=== PATIENT | male | born 1945 | race Caucasian/White ===

== ENCOUNTER → 2019-09-10 08:20 | Outpatient (CLI) | payer MEDICARE, BC ==
--- NOTE | ~2019-09-10 | ST ---
PATIENT:FILIPE HIDALGO MEDICAL RECORD: [id number] SEX: M LOCATION:[facility] ORDER #: ADMISSION DATE: 09/10/19 AGE OF PATIENT: 74 REFERRING PHYSICIAN: INTERPRETING PHYSICIAN: TRICE BOND MD DATE OF SERVICE: 09/10/2019 PROCEDURE: Nuclear stress test. INDICATION: Angina, hypertension, hyperlipidemia, shortness of breath. TECHNIQUE: He was exercised on standard Lexiscan protocol with 33 mCi of sestamibi injected at peak stress, 11 mCi used previously for rest images. FINDINGS: Gated SPECT reveals a preserved ejection fraction greater than 50% with decreased thickening and brightening throughout the inferior segments. SPECT imaging; Cardiolite was used as myocardial perfusion agent. There is a fixed perfusion defect inferiorly compatible with previous inferior myocardial infarction; however, there is reversible ischemia anteriorly, this includes the basal, mid, apical anterior segments. The degree of reversibility is mild. The amount of myocardium involved between the two defects is large. OVERALL IMPRESSION: This is an abnormal intermediate risk nuclear stress test, fixed perfusion defect inferiorly, reversible ischemia anteriorly suggestive of multivessel coronary artery disease. TRANSINT:[id number] Voice Confirmation ID: [id number] DOCUMENT ID: [id number] TRICE BOND MD CC: [id number] DICTATION DATE: 09/10/19 1436 ELECTRONIC COMMERCE SPECIALIST: 09/11/19 0805 [facility] CLI 09/10/19 [facility] [address] [place] [address]
--- NOTE | 2019-09-10 16:42 | EC ---
PATIENT:FILIPE HIDALGO DATE OF SERVICE: 09/10/19 SEX: M MEDICAL RECORD: [id number] DATE OF : 45 LOCATION:[facility] AGE OF PATIENT: 74 ADMISSION DATE: 09/10/19 REFERRING PHYSICIAN: INTERPRETING PHYSICIAN: TRICE KULKARNI MD ECHOCARDIOGRAM REPORT ECHO CHARGES 4 ECHO COMPLETE Date: 09/10/19 CLINICAL DIAGNOSIS: ANGINA/DYSPNEA/SOB/GARCÍA/MURMUR H/O HTN/MVP ECHOCARDIOGRAPHIC MEASUREMENTS (adult normal given) AC root (d.<3.7cm) 3.5 cm LV Septum d (<1.2 cm> 1.5 cm Valve Excursion 2.2 cm LV Septum (systole) 2.1 cm Left Atria (s.<4.0cm> 5.0 cm LVPW d(<1.2cm) 1.4 cm RV (d.<2.3cm) 4.0 cm LVPW (sytole) 1.8 cm LV diastole(<5.6CM) 4.4 cm MV E-F(>70mm/sec) cm LV systole 2.6 cm LVOT Diameter 2.2 cm MV exc.(>10mm) cm Est.ejection fraction (50-75%) % DOPPLER: LVIT cm/sec A 39.0 cm/sec E 82.0 cm/sec LA cm/sec RVSP 36.0 mmHg LVOT 108 cm/sec AOP1/2T m/s Asc. Ao 180 cm/sec RVOT 54.0 cm/sec RA cm/sec PA 88.0 cm/sec AV Gradient Peak 13.0 mmHg AV Mean 7.5 mmHg AV Area 2.0 cm MV Gradient Peak 3.8 mmHg MV Mean 1.0 mmHg MV Area cm COMMENTS: OP - HC Electronics Test Engineer: 1 IDANIA YUSUF Delivery Route Driver: 1 Dr. Kulkarni TAPE# PACS Pericardial Effusion N DATE OF SERVICE: FINDINGS: 1. Left ventricular chamber size is within normal limits. Left ventricular systolic function is normal at 55%. 2. Left atrium is enlarged at 5.0 cm. Right atrium and right ventricular chamber sizes are as well sysi-xh-frwttczghd dilated. 3. Valvular structures have normal structure and motion. 4. Doppler interrogation reveals moderate mitral regurgitation, mild tricuspid regurgitation, no other valvular insufficiency or stenosis. Pulmonary systolic ECHOCARDIOGRAM REPORT [id number] FILIPE HIDLAGO pressure is estimated 36 mmHg. 5. No evidence of pericardial effusion or left ventricular thrombus. TRANSINT:[id number] Voice Confirmation ID: [id number] DOCUMENT ID: [id number] TRICE KULKARNI MD at 1642 CC: [id number] DICTATION DATE: 09/10/19 1150 APPLICATION DESIGN ENGINEER: 09/10/19 1427 [facility] [address] [place] [id number]
== END | disposition home or self-care (01) ==
LOC: D.HCCECHO 08:20
PROVIDERS: ATTEND Internal Medicine Interventional Cardiology
DX: I10 Essential (primary) hypertension (principal)

== ENCOUNTER 2019-09-29 09:27 | Outpatient (CLI) | payer MEDICARE, BC ==
[~2019-09-29] VITALS: Ht 188 cm; Wt 104.5 kg
--- NOTE | ~2019-09-29 | HEMODYNAMI ---
PATIENT:FILIPE HIDALGO MEDICAL RECORD: [id number] : 45 LOCATION:[facility] ADMISSION DATE: 09/29/19 Generatedon:09/29/201912:07 Patient name: FILIPE HIDALGO Patient #: [id number] SSN: : 1945 Date of study: 09/29/2019 Page: Of Hemodynamic Procedure Report Patient Data Patient Demographics Procedure consent was obtained First Name: FILIPE Gender: Male Last Name: GWEN : 1945 Patient #: [id number] Age: 74 year(s) Race: Additional ID: [id number] Contact details [address]: [address] [place] [address] State: [place] City: [place] Zip code: [address] Admission Admission Data Admission Date: 09/29/2019 Admission Time: 9:27 Insurance Payor: Medicare Height (in.): 74 BSA: 2.31 (m2) Height (cm.): 187.96 BMI: 29.72 (kg/m2) Weight (lbs.): 231.49 Weight (kg.): 105 Current Diagnosis Diagnosis Description Unstable angina Lab Results Lab Result Date: 09/29/2019 Lab Result Time: 0:00 Biochemistry Name Units Result Min Max Creatinine mg/dl 1.1 --(--*-)-- 0.6 1.3 eGFR ml/min 69 *-(----)-- 90 120 NONAFRICAN CBC Name Units Result Min Max Hematocrit % 44 --(*---)-- 42 54 Hemoglobin g/dl 15.2 --(-*--)-- 13.5 17.5 Procedure Procedure Types Cath Procedure Diagnostic Procedure C [facility] w/Coronaries Procedure Description Procedure Date Procedure Date: 09/29/2019 Procedure Start Time: 11:57 Procedure End Time: 12:05 Procedure Staff Name Function Geovanni Kulkarni MD Performing Physician Sondra Aleman RN Monitor Eren Mcfadden RT Scrub Woo Carmona RN Nurse Indication Dyspnea with exertion Procedure Data Cath Procedure Fluoroscopy Diagnostic fluoroscopy Total fluoroscopy Time: 1 time: 1 min min Diagnostic fluoroscopy Total fluoroscopy dose: 503 dose: 503 mGy mGy Contrast Material Contrast Material Type Amount (ml) Isovue 300 47 Entry Location Entry Primary Successful Side Size Upsize Upsize Entry Closure Succes sful Closure Location (Fr) 1 (Fr) 2 (Fr) Remarks Device Remarks Femoral Right 5 Fr Exoseal artery Estimated blood loss: 5 ml Diagnostic catheters Device Type Used For End Catheter Placement MULTIPACK Pigtail 5 Fr Procedure catheter MULTIPACK JL 4.0 5Fr Procedure catheter MULTIPACK 3DRC 5Fr Procedure catheter Procedure Complications No complications Procedure Medications Medication Administration Route Dosage 0.9% NaCl I.V. 100 ml/hr Oxygen etCO2 Nasal cannula 2 l/min Heparin Flush Bag added to field 2 bags (1000units/500ml NS) Lidocaine 2% added to field 20 Versed I.V. 2 mg Fentanyl I.V. 100 mcg Hemodynamics Rest BSA: 2.31 (m2) HGB: 15.2 (g/dl) O2 Consumption: Estimated: 258.34 (ml/min) O2 Co nsumption indexed: Estimated:111.84 (ml/min/m) Heart Rate: 61 (bpm) Snapshots Pre Cath Intra NCS Post Cath Vital Signs Time Heart Resp SPO2 etCO2 NIBP (mmHg) Rhythm Pain Sedation Rate (ipm) (%) (mmHg) Status Level (bpm) 11:43:04 59 12 97 43.6 116/74(109) NSR 0 (11) 10(A) , No pain 11:47:05 62 15 97 35.3 111/80(90) NSR 0 (11) 10(A) , No pain 11:51:09 61 13 96 38.3 117/73(88) NSR 0 (11) 10(A) , No pain 11:55:17 59 10 96 0 108/68(80) NSR 0 (11) 10(A) , No pain 11:59:21 58 11 96 21 110/69(89) NSR 0 (11) 9(A) , No pain 12:03:20 67 11 97 39.8 126/81(111) NSR 0 (11) 9(A) , No pain Medications Time Medication Route Dose Verified Delivered Reason Notes Eff ectiveness by by 11:48:39 0.9% NaCl I.V. 100 Woo Woo Per ml/hr Kristine Carmona physician RN RN 11:48:49 Oxygen etCO2 2 Woo Woo for low 02 Nasal l/min Lorigan Lorigan sats cannula RN RN 11:49:00 Heparin Flush added 2 Woo Woo used for Bag to bags Kristine Carmona procedure (1000units/500ml field RN RN NS) 11:49:10 Lidocaine 2% added 20ml Woo Woo for local to vial Lorigan Lorigan anesthetic field RN RN 11:58:48 Versed I.V. 2 mg Woo Woo for Lorigan Lorigan sedation RN RN 11:58:57 Fentanyl I.V. 100 Woo Woo for mcg Lorigan Lorigan sedation RN surgical supervisor Log Time Note 11:21:21 Informed consent obtained and on chart 11:21:30 Diagnostic Cath Status : Elective 11:22:43 Indication : Dyspnea with exertion 11:23:09 Patient Height : 74 inches 11:23:33 Insurance Payor : Medicare 11:28:17 Plan of Care:Hemodynamics will remain stable., Cardiac rhythm will remain stable., Comfort level will be maintained., Respiratory function will remain adequate., Patient/ family verbilizes understanding of procedure., Procedure tolerated without complication., Recovers from procedure without complications.. 11:35:24 Woo Carmona RN sent for patient. Start room use. 11:35:36 Time tracking: Regular hours (M-F 7:00 - 5:00) 11:41:51 Patient received from Pre/Post Procedure Room to [facility] 2 Alert and oriented. Tansferred to table in Supine position. 11:41:53 Warm blankets applied, and bryon hugger turned on for patient comfort. 11:41:55 Correct patient and procedure confirmed by team. 11:42:00 ECG and BP/O2 sat monitors applied to patient. 11:42:01 Vital chart was started 11:42:12 Baseline sample Acquired. 11:42:21 Rhythm: sinus rhythm 11:42:24 Full Disclosure recording started 11:42:49 H&P Date Dictated: 08/31/2019 Within 30 days and on chart.. 11:43:10 Pre-procedure instructions explained to patient. 11:43:12 Pre-op teaching completed and patient verbalized understanding. 11:43:19 Family in patients room. 11:43:31 Patient NPO since Midnight. 11:44:14 Is the patient allergic to Iodine/contrast media? No. 11:44:21 Snore? Yes 11:44:23 Sleep apnea? Yes 11:44:32 Airway obstruction? Yes copd 11:44:39 Deviated septum? No 11:44:41 Opens mouth fully? Yes 11:44:43 Sticks out tongue? Yes 11:44:48 ----Pre-sedation anethsthesia assessment.---- 11:44:52 Previous problem with sedation/anesthesia? No ? 11:45:03 Is patient on blood thinner?No 11:45:06 Patient diabetic? Yes. 11:45:09 If diabetic: On Metformin? Yes 11:45:18 If on Metformin: Last Dose? 09/26/2019 11:45:30 Dentures? No ? 11:45:48 Modified Aayush's test Ulnar > 7 seconds. 11:46:01 Pre procedure: right dorsailis pedis pulse 2+ Normal; easily identifiable; not easily obliterated 11:46:14 Patient pain scale 0/10 ?. 11:46:36 IV patent on arrival in left forearm with 0.9% NaCl at 100ml/hr. 11:48:39 0.9% NaCl 100 ml/hr I.V. was administered by Woo Carmona RN; Per physician; Verbal order read back and verified. 11:48:49 Oxygen 2 l/min etCO2 Nasal cannula was administered by Woo Carmona RN; for low 02 sats; Verbal order read back and verified. 11:49:00 Heparin Flush Bag (1000units/500ml NS) 2 bags added to field was administered by Woo Carmona RN; used for procedure; Verbal order read back and verified. 11:49:10 Lidocaine 2% 20ml vial added to field was administered by Woo Carmona RN; for local anesthetic; Verbal order read back and verified. 11:51:08 Lab results completed and on chart. 11:52:09 Stress Test: yes; abnormal intermediate risk anterior ischemia 11:52:32 Patient Weight : 231.49 lbs 11:52:36 Current Diagnosis : Unstable angina 11:54:00 Lab Result : Creatinine 1.1 mg/dl 11:54:00 Lab Result : Hemoglobin 15.2 g/dl 11:54:00 Lab Result : eGFR NONAFRICAN 69 ml/min 11:54:00 Lab Result : Hematocrit 44 % 11:55:54 Risk of Mortality: 0.1 11:55:56 Risk of blood transfusion: 0.1 11:55:59 Risk of PAUL: 0.2 11:56:04 Right groin area was prepped with chlora-prep and draped in sterile fashion 11:56:05 Alarms reviewed by R. N. 11:56:05 Sharps counted by scrub and verified by R.N. 11:56:07 --------ALL STOP TIME OUT------ 11:56:07 Final Timeout: patient, procedure, and site verified with staff and physician. All members of the team are in agreement. 11:56:09 Right groin site verified by team. 11:56:12 Fire Safety Assessment: A--An alcohol-based skin anteseptic being used preoperatively., C--Open oxygen or nitrous oxide is being used., D--An ESU, laser, or fiber-optic light is being used. 11:56:25 Physical assessment completed. ASA score P 2 - A patient with mild systemic disease as per Geovanni Kulkarni MD. 11:56:32 2) 60-89 Mildly reduced kidney function, and other findings (as for stage 1) point to kidney disease. 11:56:35 Maximum allowable contrast dose (3.7 X eGFR X 0.75)191 ml. 11:56:38 Sedation plan: IV Moderate Sedation Medication:Versed, Fentanyl 11:56:59 Use device set Femoral Dx 11:57:00 ACIST Syringe (19905) opened to sterile field. 11:57:01 Bag Decanter (2002S) opened to sterile field. 11:57:02 Medline Cath Pack ([id number]) opened to sterile field. 11:57:03 ACIST Hand Control (15738) opened to sterile field. 11:57:04 ACIST Manifold (69033) opened to sterile field. 11:57:08 SHEATH 5FR Hampton ([id number]) opened to sterile field. 11:57:09 EMERALD Guide Wire (860-529) opened to sterile field. 11:57:17 Procedure started. 11:57:27 Local anesthetic to right femoral artery with Lidocaine 2% by Geovanni Kulkarni MD.INITIAL ACCESS ONLY 11:58:48 Versed 2 mg I.V. was administered by Woo Carmona RN; for sedation; Verbal order read back and verified. 11:58:49 A 5 Fr sheath was inserted into the Right Femoral artery 11:58:57 Fentanyl 100 mcg I.V. was administered by Woo Carmona RN; for sedation; Verbal order read back and verified. 11:59:01 A MULTIPACK Pigtail 5 Fr catheter was advanced over the wire and used for Procedure. 11:59:07 LV gram done using MILLER 11:59:12 Injector settings: Ml/sec: 5, Volume: 15, 11:59:20 EF : 60 % 11:59:21 Catheter removed. 11:59:26 A MULTIPACK JL 4.0 5Fr catheter was advanced over the wire and used for Procedure. 12:00:11 LCA angiography performed. 12:01:04 Catheter removed. 12:01:09 A MULTIPACK 3DRC 5Fr catheter was advanced over the wire and used for Procedure. 12:01:57 RCA angiography performed. 12:02:01 Catheter removed. 12:02:09 EXOSEAL 5Fr (EX500) opened to sterile field. 12:02:29 Sheath removed intact; hemostasis achieved with Exoseal to the Right Femoral artery. 12:02:34 Procedure ended.(Physican Out) 12:03:49 Fluoroscopy time 01.00 minutes. 12:03:52 Flurop Dose total: 503 12:03:52 Fluoroscopy dose: 503 mGy 12:03:56 Dose Area Product 50971 mGy/cm. 12:04:06 Contrast amount:Isovue 300 47ml. 12:04:11 Maximum allowable dose exceeded? No. 12:04:11 Sharps counted by scrub and verified by R.N. 12:04:14 Insertion/operative site no bleeding no hematoma. 12:04:16 Post-op/insertion site Right Femoral artery dressed using a 4 x 4 and Tegaderm. 12:04:22 Post right femoral artery:stable, soft, clean and dry 12:04:25 Post Procedure Pulses reassessed and unchanged 12:04:28 Post procedure: right dorsailis pedis pulse 2+ Normal; easily identifiable; not easily obliterated. 12:04:31 Post-procedure physical assessment completed. ASA score P 2 - A patient with mild systemic disease as per Geovanni Kulkarni MD. 12:04:33 Post procedure rhythm: unchanged. 12:04:36 Estimated blood loss: 5 ml 12:04:39 Post procedure instruction explained to patient.Patient verbalizes understanding. 12:04:39 Patient needs reinforcement of post procedure teaching. 12:04:54 Procedure and supply charges have been captured, reviewed, submitted and are correct. 12:05:40 Procedure Complication : No complications 12:05:42 Vital chart was stopped 12:05:43 [facility] Findings: mild to moderate CAD (<70%) 12:05:44 Operative report dictated upon procedure completion. 12:05:44 See physician's report for complete and final results. 12:05:47 Report given to Pre/Post Procedure Room. 12:05:49 Patient transfered to Pre/Post Procedure Room with Stretcher. 12:05:51 Procedure ended. 12:05:51 Full Disclosure recording stopped 12:05:56 End room use (Document Last) 12:06:22 End room use (Document Last) 12:06:54 End room use (Document Last) Device Usage Item Name Manufacture Quantity Catalog Hospital Part Current Minimal L ot# / Number Charge Number Stock Stock Serial# Code ACIST Acist 1 [id number] [id number] 377241 [id number] 20 Syringe Medical (56969) Systems Inc Bag Microtek 1 2001S 144504 20560 771534 5 Decanter Medical Inc. () Medline Medline 1 [id number] 20687 334812 5 Cath Pack ([id number]) ACIST Hand Acist 1 56788 867135 316303 692830 5 Control Medical (70611) Systems Inc ACIST Acist 1 06291 249922 402231 789894 5 Manifold Medical (83850) Systems Inc SHEATH 5FR Terumo 1 [id number] 332743 017388 372370 5 Hampton (TEO991) EMERALD Cardinal 1 632-284 368156 163113 545770 5 Guide Wire Health (502-000) MULTIPACK Cardinal 1 086307 5 Pigtail 5 Health Fr catheter MULTIPACK Cardinal 1 857596 5 JL 4.0 5Fr Health catheter MULTIPACK Cardinal 1 318359 5 3DRC 5Fr Health catheter EXOSEAL 5Fr Cardinal 1 EX500 989390 927305 194398 10 (EX500) Health Signature Audit [place] Stage Time Signature Unsigned Intra-Procedure 09/29/2019 Sondra Aleman 12:06:22 PM RN Intra-Procedure 09/29/2019 Woo 12:06:54 PM Kristine RN Intra-Procedure 09/29/2019 Geovanni Kulkarni 12:07:17 PM MD Signatures Performing Physician : Signature : Geovanni Kulkarni MD Date : Time : Monitor : Sondra Aleman Signature : RN Date : Time : Nurse : Woo Manjarrezigan Signature : RN Date : Time : [facility] [address] [place] [address]
[2019-09-29] MEDS ORDERED: GLUCOPHAGE500 MG PO (10:05)
[2019-09-29] MEDS ORDERED: FLUTICASONE PRO16 GM NASAL (10:06)
[2019-09-29] MEDS ORDERED: BAYER CHEWABLE81 MG PO (10:06)
[2019-09-29] MEDS ORDERED: DILTIAZEM PO (10:06)
[2019-09-29] MEDS ORDERED: LOSARTAN-HCTZ1 EAC1 PO (10:06)
[2019-09-29] MEDS ORDERED: FUROSEMIDE20 MG PO (10:06)
[2019-09-29] MEDS ORDERED: PEPCID AC20 MG PO (10:07)
[2019-09-29] MEDS ORDERED: LOVASTATIN20 MG PO (10:07)
[2019-09-29 10:23] VITALS: BP 158/77; Ht 188 cm; Wt 104.5 kg
[2019-09-29 10:49] LABS: ANION GAP 11.4 mmol/L (8-16); CALCIUM 9.1 mg/dL (8.5-10.1); CARBON DIOXIDE 29.2 mmol/L (21.0-32.0); CHOL - HDL RATIO 3.2 ratio (2.3-4.9); CREATININE - SERUM 1.1 mg/dL (0.6-1.3); LDL-HDL RATIO 1.6 ratio (1.5-3.5); POTASSIUM - SERUM 3.6 mmol/L (3.5-5.1)
[2019-09-29 11:03] LABS: BASOPHILS 0.7 % (0-2); EOSINOPHILS 2.2 % (0-7); HEMOGLOBIN 15.2 g/dL (13.5-17.5); LYMPHOCYTES 28.9 % (15-50); MCH 32.7 pg (26.0-34.0); MCHC 34.5 g/dL (31.0-37.0); MCV 94.6 fL (80.0-100.0); MEAN PLATELET VOLUME 10.4 fL (7.4-10.4); MONOCYTES 11.7 % (2-11); NEUTROPHILS 56.5 % (40-80); PLATELET COUNT 214 10x3/uL (130-400); RBC 4.65 10x6/uL (4.20-6.10); RDW 12.2 % (11.5-14.5); WBC 5.5 10x3/uL (4.8-10.8)
--- NOTE | 2019-09-29 12:20 | NUR ---
REC'D TO ROOM 5 VIA STRETCHER FROM TUCK POINTER HELPER. MONITORS ESTAB. AT BS. SEE GREENS LABORER.
--- NOTE | 2019-09-29 12:35 | NUR ---
R GROIN SITE C/D/I, NO S/S BLEEDING OR SWELLING. R FOOT WARM WITH PALP PULSES AND BRISK CAP REFILL. VSS. AT BS. C/L IN REACH.
--- NOTE | 2019-09-29 13:05 | NUR ---
R GROIN SITE C/D/I, SOFT, NO S/S BLEEDING OR HEMATOMA. BEGIN TO ELEVATE HEAD SLOWLY. VSS. PT DENIES PAIN.
--- NOTE | 2019-09-29 13:20 | NUR ---
R DEMI MARQUEZ, C/D/I. SANDWICH AND SODA PROVIDED, AT BS.
--- NOTE | 2019-09-29 13:34 | NUR ---
ATE ALL OF SANDWICH, VSS. R GROIN SITE SOFT, C/D/I. C/L IN REACH.
--- NOTE | 2019-09-29 13:55 | NUR ---
R GROIN SITE SOFT, C/D/I. ALL DISCHARGE TEACHING REVIEWED WITH PT AND HIS . PIV D/C'D INTACT, DSG APPLIED. PT ALLOWED UP TO GET DRESSED.
--- NOTE | 2019-09-29 14:05 | NUR ---
PT UP TO BR INDEPENDENTLY, THEN D/C'D TO PRIVATE VEHICLE VIA W/C WITH ALL PAPERWORK AND BELONGINGS.
--- NOTE | 2019-10-01 11:26 | OP ---
PATIENT NAME: FILIPE HIDALGO MEDICAL RECORD: [id number] :45 LOCATION:D.[facility] ADMISSION DATE: SURGEON: TRICE BOND MD DATE OF OPERATION: 09/29/2019 PROCEDURES: 1. Left heart catheterization. 2. Selective coronary angiography. 3. Left ventriculogram. INDICATION: Angina, abnormal nuclear stress test. DESCRIPTION OF PROCEDURE: After informed consent was obtained and after a detailed description of the risks, benefits as well as alternative therapies, the patient elected to proceed with angiogram and heart catheterization. The right femoral area was prepped and draped in normal sterile fashion. Right femoral artery was cannulated via modified Seldinger technique with placement of 5-Maori sheath. All catheters exchanged through this sheath. FINDINGS: Left ventriculogram was performed in standard 30-degree MILLER view, reveals good cardiac wall motion, ejection fraction estimated at 55%. SELECTIVE CORONARY ANGIOGRAPHY: Left main, left anterior descending, left circumflex, right coronary artery are all smooth-walled vessels with no angiographic evidence of coronary artery disease. OVERALL IMPRESSION: 1. No angiographic evidence of coronary artery disease. 2. Normal left heart pressures. 3. Normal left ventricular systolic function. Chest pain is noncardiac in etiology. No further cardiac workup needs to be ascertained. TRANSINT:[id number] Voice Confirmation ID: [id number] DOCUMENT ID: [id number] TRICE BOND MD at 1126 CC: [id number] DICTATION DATE: 09/29/19 1206 RESEARCH ENGINEER: 09/29/19 1559 DEP CLI 09/29/19 [place] [id number] [place] [id number]
== END 2019-09-29 14:05 | disposition home or self-care (01) ==
LOC: D.CATH 09:27
PROVIDERS: ATTEND Internal Medicine Interventional Cardiology
DX: I20.9 Angina pectoris, unspecified (principal); R94.39 Abnormal result of other cardiovascular function study; R07.9 Chest pain, unspecified; R06.09 Other forms of dyspnea; I10 Essential (primary) hypertension; E78.5 Hyperlipidemia, unspecified; R01.1 Cardiac murmur, unspecified

== ENCOUNTER → 2020-01-07 13:32 | Outpatient (CLI) | payer MEDICARE, BC ==
[2019-09-29 10:23] VITALS: BMI 29.6
[~2020-01-07 13:32] MED LIST: BAYER CHEWABLE81 MG PO; DILTIAZEM PO; FLUTICASONE PRO16 GM NASAL; FUROSEMIDE20 MG PO; GLUCOPHAGE500 MG PO; LOSARTAN-HCTZ1 EAC1 PO; LOVASTATIN20 MG PO; PEPCID AC20 MG PO
[2020-01-07 14:30] LABS: CREATININE - SERUM 1.1 mg/dL (0.6-1.3)
[2020-01-07 14:31] LABS: HEMATOCRIT 39.2 % (42.0-54.0); HEMOGLOBIN 13.2 g/dL (13.5-17.5); LYMPHOCYTES 23.4 % (15-50); MCH 32.3 pg (26.0-34.0); MCHC 33.7 g/dL (31.0-37.0); MCV 95.8 fL (80.0-100.0); NEUTROPHILS 69.4 % (40-80); PLATELET COUNT 176 10x3/uL (130-400); RBC 4.09 10x6/uL (4.20-6.10); RDW 12.2 % (11.5-14.5); WBC 6.7 10x3/uL (4.8-10.8)
== END | disposition home or self-care (01) ==
LOC: D.LAB 13:32 → D.CT 14:30 → D.RT 15:00
PROVIDERS: ATTEND Internal Medicine Pulmonary Disease
DX: R06.09 Other forms of dyspnea (principal)

== ENCOUNTER → 2020-01-11 12:28 | Outpatient (CLI) | payer MEDICARE, BC ==
[2019-09-29 10:23] VITALS: BMI 29.6
== END | disposition home or self-care (01) ==
LOC: D.RAD 12:28
PROVIDERS: ATTEND Internal Medicine Pulmonary Disease
DX: R06.09 Other forms of dyspnea (principal); J44.9 Chronic obstructive pulmonary disease, unspecified

== ENCOUNTER → 2020-11-17 09:47 | Outpatient (CLI) | payer MEDICARE ==
[2019-09-29 10:23] VITALS: BMI 29.6
== END | disposition home or self-care (01) ==
LOC: D.LAB 09:47
PROVIDERS: ATTEND Internal Medicine Pulmonary Disease
DX: J44.9 Chronic obstructive pulmonary disease, unspecified (principal); Z11.52 Encounter for screening for COVID-19

== ENCOUNTER → 2020-11-22 10:18 | Outpatient (CLI) | payer MEDICARE ==
[2019-09-29 10:23] VITALS: BMI 29.6
== END | disposition home or self-care (01) ==
LOC: D.ECHO 10:18 → D.RAD 11:30 → D.RT 13:00
PROVIDERS: ATTEND Internal Medicine Pulmonary Disease
DX: J44.9 Chronic obstructive pulmonary disease, unspecified (principal); R06.09 Other forms of dyspnea